=== PATIENT | male | born 1995 | race African-American/Black ===

== ENCOUNTER 2017-07-30 09:07 | Emergency (ER) | payer OTHER ==
[2017-07-30] MEDS: TETRACAINE 0.5% OPHTH SOLN 4ML OS (10:12)
[2017-07-30] MEDS: FLUORESCEIN OPHTH 1 MG STRIP OS (10:12)
== END 2017-07-30 10:42 | disposition home or self-care (01) ==
LOC: M ED 09:07
DX: H57.12 Ocular pain, left eye (principal); T15.92XA Foreign body on external eye, part unspecified, left eye, initial encounter
CPT/HCPCS: 99283